=== PATIENT | female | born 1975 | race Caucasian/White ===

== ENCOUNTER → 2017-05-17 | Outpatient (CLI) | payer OTHER ==
[~2017-05-17] MED LIST: ATV/1 PO; B-CO1CAP5; BUPR-79 PO; CHOL100010; GADAVIST IV PRN; GLAT1INJ; SERT25TA PO
--- NOTE | 2017-05-17 21:01 | DIAGNOSTIC IMAGING REPORT ---
CERVICAL SPINE COMBO HISTORY: Multiple sclerosis G35 TECHNIQUE: Multiplanar multisequence MRI of the cervical spine was performed both before and after the use of intravenous contrast. COMPARISON STUDY: 11/22/2013 FINDINGS: Improved study study technically compared to the prior exam. Signal characteristics of the vertebral bodies are unremarkable. There is mild disc desiccation at C5-C6. Sagittal T2 images demonstrate plaques at the C2-C3 level, C4-C5 level, as well as minimally from C5 through C7. There is no significant postcontrast sagittal enhancement. C2-C3: Several small foci of pneumonia than several millimeters of the posterior column. This is somewhat progressive compared to the prior exam. There is again no significant postcontrast enhancement. C3-C4: No significant central canal or neural foraminal narrowing. C4-C5: Rather prominent focus of increased signal involving the left lateral column 8 x 5 mm. C5-C6: Central bulging disc. Minimal impact with anterior cervical cord. This is similar to the prior study. Increased signal within the central cord suggesting a slightly progressive plaque. C6-C7: Slightly inhomogeneous signal characteristics of the cervical cord. No evidence of disc herniation or C7-T1: No significant central canal or neural foraminal narrowing. IMPRESSION: 1. Several foci of increased signal and/or plaque considered improved in definition from the prior study. 2. Although components of this apparent progression most likely relate to a technically improved scan currently, there has been a slight increase in size as well as number of foci as noted above. 3. No evidence for postcontrast enhancement. 4. Central bulging disc C5-C6 unchanged. 5. The largest focus of demyelination is at C4-C5 and measures 8 x 5 mm The above report was generated using voice recognition software. It may contain grammatical, syntax or spelling errors. Electronically signed by: Pablito Noe M.D. 05/17/2017 9:00 PM Dictated Date/Time: 05/17/2017 8:52 PM
== END | disposition home or self-care (01) ==
LOC: C.MRI 19:39
PROVIDERS: ATTEND Psychiatry & Neurology Neurology
DX: G35 Multiple sclerosis (principal); M50.20 Other cervical disc displacement, unspecified cervical region

== ENCOUNTER → 2018-03-07 | Outpatient (CLI) | payer OTHER ==
--- NOTE | 2018-03-07 16:26 | DIAGNOSTIC IMAGING REPORT ---
Brain MRI WITH AND WITHOUT CONTRAST HISTORY: HEADACHES TECHNIQUE: Multiplanar multisequence MRI of the brain was performed both before and after the intravenous administration of contrast. COMPARISON STUDY: Brain MRI 07/10/2014. FINDINGS: There is no mass, hematoma, midline shift, acute infarct. Multiple scattered white matter plaques are again noted throughout the supratentorial brain and right middle cerebellar peduncle. The majorities are stable compared the prior study. A few these white matter plaques have slightly increased in size. In addition, there is an enhancing white matter plaque within the left posterior parietal lobe on image 13 which measures 7 mm. This is consistent with a focus of active demyelination. The paranasal sinuses and mastoid air cells are clear. The major vascular flow-voids at the skull base are well-maintained. IMPRESSION: 1. Multiple scattered white matter plaques seen throughout the brain, some of which have increased in size. This is consistent consistent with slight progression of the patient's known multiple sclerosis. 2. A single enhancing white matter plaque within the left parietal lobe consistent with active demyelination. Electronically signed by: Nghia Dupree M.D. 03/07/2018 4:25 PM Dictated Date/Time: 03/07/2018 3:51 PM
== END | disposition home or self-care (01) ==
LOC: C.MRI 14:23
PROVIDERS: ATTEND Internal Medicine
DX: R51 Headache (principal); G35 Multiple sclerosis